=== PATIENT | female | born 1980 | race Caucasian/White ===

== ENCOUNTER 2019-12-19 18:32 | Emergency (ER) | payer BC ==
[2019-12-19 18:57] VITALS: BP 127/82
--- NOTE | 2019-12-19 19:16 | UC ---
FLU HPI - HPI Summary HPI Summary: Since tuesday pt has had sore throat, dry cough, fever, body aches, wheezing, fatigue, congestion. woke up this moring with 101 temp and body aches are getting worse - History of Current Complaint Chief Complaint: UCGeneralIllness Stated Complaint: FLU LIKE SYMPTOMS Time Seen by Provider: 12/19/19 19:04 Hx Obtained From: Patient Hx Last Menstrual Period: 12/05/19 ?: No Onset/Duration: Sudden Onset, Lasting Days Severity Currently: Mild Severity Initially: Moderate Pain Intensity: 0 Associated Signs & Symptoms: Positive: Fever, Myalgia, Sore Throat, Headache - Allergy/Home Medications Allergies/Adverse Reactions: Allergies Allergy/AdvReac Type Severity Reaction Status Date / Time No Known Allergies Allergy Verified 12/19/19 18:52 Home Medications: Home Medications NK [No Home Medications Reported] 12/19/19 [History Confirmed 12/19/19] PMH/Surg Hx/FS Hx/Imm Hx Previously Healthy: Yes - Surgical History Surgical History: None - Family History Known Family History: Negative: Hypertension - Social History Alcohol Use: Occasionally Substance Use Type: None Smoking Status (MU): Former Smoker Type: Cigarettes Amount Used/How Often: 5 cigarettes daily When Did the Patient Quit Smoking/Using Tobacco: 10/2018 - Immunization History Most Recent Influenza Vaccination: 2012 Review of Systems All Other Systems Reviewed And Are Negative: Yes Constitutional: Positive: Fever, Fatigue ENT: Positive: Sore Throat, Ear Ache Respiratory: Positive: Cough Musculoskeletal: Positive: Myalgia Neurological: Positive: Headache Is Patient Immunocompromised?: No Physical Exam Triage Information Reviewed: Yes Appearance: Well-Nourished, Ill-Appearing, Pain Distress Vital Signs: Initial Vital Signs Temp 99.2 F 12/19/19 18:53 Pulse 96 12/19/19 18:53 Resp 16 12/19/19 18:53 BP 127/82 12/19/19 18:53 Pulse Ox 97 12/19/19 18:53 Vital Signs Reviewed: Yes ENT: Positive: Pharyngeal erythema, TM bulging Neck: Positive: Supple, Nontender, No Lymphadenopathy Respiratory: Positive: Chest non-tender, Lungs clear, Normal breath sounds Cardiovascular: Positive: RRR, No Murmur, Pulses Normal Abdominal Exam: Normal Bowel Sounds: Positive: Present Musculoskeletal Exam: Normal Neurological Exam: Normal Psychological Exam: Normal Flu Course/Dx - Course Course Of Treatment: hx obtained, exam performed ,meds reviewed, rapid flu obtained and is positive. did discuss tamiflu treatment pros and cons and patient declined at this time. - Differential Dx/Diagnosis Provider Diagnosis: Influenza A Discharge ED - Sign-Out/Discharge Documenting (check all that apply): Patient Departure All imaging exams completed and their final reports reviewed: No Studies - Discharge Plan Condition: Stable Disposition: HOME Patient Education Materials: Influenza (ED) Forms: *Work Release Referrals: Kailey Caraballo NP [Primary Care Provider] - Additional Instructions: 1. take ibuprofen as needed 400 mg every 4-6 hours. 2. increase fluids and get plenty of rest. 3. Follow up in ER if you develop any shortness of breath or respiratory distress - Billing Disposition and Condition Condition: STABLE Disposition: Home - Attestation Statements Provider Attestation: Pt not seen by me I was available for consult Chart reviewed
[2019-12-19 19:20] LABS: Influenza A Molecular POSITIVE (Negative)
== END 2019-12-19 19:31 | disposition home or self-care (01) ==
LOC: UCCORT 18:32
DX: J10.1 Influenza due to other identified influenza virus with other respiratory manifestations (principal); Z87.891 Personal history of nicotine dependence
CPT/HCPCS: 99201; G0463

== ENCOUNTER 2023-05-04 07:37 | Observation (INO) ==
[~2023-05-04 07:37] MED LIST: Buffered Lidocaine 1% SYRIN 1 ml INTRADERM ONE; Lactated Ringers 1000 ml BAG 1,000 ML IV SCH
[2023-05-04] MEDS ORDERED: Chlorhexidine MOUTHWASH 0.12% 15 ML UDC ONE (07:46)
[2023-05-04] MEDS ORDERED: Scopolamine 1 mg/72hr PATCH ONE (08:03)
[2023-05-04] MEDS ORDERED: ceFAZolin 2 GM in NS PREMIX 2 GM/100 ML BAG IVPB ONE (08:03)
[2023-05-04] MEDS ORDERED: Buffered Lidocaine 1% SYRIN 1 ml ONE (08:04)
[2023-05-04 08:20] LABS: Rapid COVID-19 Molecular Undetected (Undetected)
[2023-05-04] MEDS ORDERED: HYDROmorphone 1 MG/1 ML SYRINGE IV PRN (08:27)
[2023-05-04] MEDS ORDERED: Ondansetron 4 mg VIAL 2 MG/ML 2 ml VIAL IV PRN ×2 (08:27→13:16)
[2023-05-04] MEDS ORDERED: Naloxone 0.4 mg VIAL 0.4 mg/ml 1 ml VIAL IV PRN (08:27)
[2023-05-04] MEDS: Scopolamine 1 mg/72hr PATCH TRANSDERM ONE ×2 (08:37→14:46)
[2023-05-04] MEDS ORDERED: fentaNYL 250 mcg/5 ml 50 MCG/ML 5 ml VIAL (250 MCG) ONE (09:38)
[2023-05-04] MEDS ORDERED: Midazolam 2 mg/2 ml VIAL 1 mg/ml 2 ml VIAL (2 mg) ONE (09:38)
[2023-05-04] MEDS ORDERED: Ondansetron 4 mg VIAL 2 MG/ML 2 ml VIAL ONE (09:39)
[2023-05-04] MEDS ORDERED: Propofol 10 MG/ML 20 ML BTL ONE (09:39)
[2023-05-04] MEDS ORDERED: Dexamethasone IV 4 MG/ML VIAL 1 ml VIAL ONE (09:39)
[2023-05-04] MEDS ORDERED: Lidocaine 2% PF 5 ML VIAL ONE (09:40)
[2023-05-04] MEDS ORDERED: ceFAZolin VIAL VIAL ONE (10:12)
[2023-05-04] MEDS ORDERED: Gelfoam Sponge SIZE 100 SPONGE ONE (10:12)
[2023-05-04] MEDS ORDERED: Thrombin 5,000 UNITS 1 APPLIC KIT - topical use - TOPICAL ONE ×2 (10:12→12:22)
[2023-05-04] MEDS ORDERED: Rocuronium 50 mg VIAL 10 mg/ml 5 ml VIAL (50 mg) ONE (10:46)
[2023-05-04] MEDS ORDERED: Thrombin 5,000 UNITS(BOVINE) for Ultrasound Guided Pseudoaneursym ONE (12:07)
[2023-05-04] MEDS ORDERED: Morphine 2 MG/ML SYRINGE IV PRN (13:16)
[2023-05-04] MEDS ORDERED: Senna TAB 8.6 mg TAB PO PRN (13:16)
[2023-05-04] MEDS ORDERED: Calcium Carb (TUMS) 500 mg CHEW TAB PO PRN (13:16)
[2023-05-04] MEDS ORDERED: HYDROcodone/ACETAMIN 5/325 mg TAB PO PRN (13:16)
[2023-05-04] MEDS ORDERED: Albuterol HFA INHALER 8 gm MDI INH PRN (13:20)
[2023-05-04] MEDS ORDERED: fentaNYL 100 mcg/2 ml 50 MCG/ML VIAL ONE (13:27)
[2023-05-04] MEDS: fentaNYL 100 mcg/2 ml 50 MCG/ML VIAL IV PRN ×2 (13:28→13:46)
[2023-05-04] MEDS: Lactated Ringers 1000 ml BAG 1,000 ML IV SCH (14:35)
[2023-05-04] MEDS ORDERED: CMCS: Vortioxetine 10 mg TAB (NF) PO SCH (16:00)
[2023-05-04] MEDS ORDERED: DULoxetine DR 60 mg CAP PO SCH (21:00)
[2023-05-05] MEDS: HYDROcodone/ACETAMIN 5/325 mg TAB PO PRN ×2 (02:31→07:06)
[2023-05-05] MEDS: Lactated Ringers 1000 ml BAG 1,000 ML IV SCH (03:54)
[2023-05-05 10:54] VITALS: BP 100/62
== END 2023-05-05 10:45 | disposition home or self-care (01) ==
LOC: SSU 07:37 → OR 07:37
PROVIDERS: ADMIT Neurological Surgery; ATTEND Neurological Surgery